=== PATIENT | female | born 1940 | race Caucasian/White ===

== ENCOUNTER 2020-05-08 11:10 | Emergency (ER) | payer MEDICARE, BC ==
[~2020-05-08] VITALS: Ht 162.6 cm; Wt 60.5 kg
[2020-05-08] MEDS ORDERED: LISI-662 PO (11:17)
[2020-05-08] MEDS ORDERED: ONDANSETRON HCL 4 MG/2 ML VIAL IVP ONE ×2 (11:30→14:30)
[2020-05-08] MEDS ORDERED: SODIUM CHLORIDE 0.9% 1,000 ML IV ONE ×2 (11:30→14:00)
[2020-05-08 12:03] LABS: BASOPHILS % (AUTO) 0.1 % (0.0-2.0); EOSINOPHILS % (AUTO) 0.2 % (1.0-6.0); HEMATOCRIT 43.4 % (36-46); HEMOGLOBIN 14.3 g/dL (12.0-16.0); LYMPHOCYTES # (AUTO) 1.1 K/uL (1.0-4.8); LYMPHOCYTES % (AUTO) 10.8 % (22.0-44.0); MEAN CORPUSCULAR VOLUME 88 fL (80-100); MONOCYTES # (AUTO) 0.7 K/uL (0.1-1.0); MONOCYTES % (AUTO) 6.7 % (2.0-9.0); NEUTROPHILS # (AUTO) 8.4 K/uL (1.8-7.7); NEUTROPHILS % (AUTO) 82.2 % (40.0-70.0); PLATELET COUNT (AUTO) 348 K/uL (150-450); RED BLOOD CELL COUNT(AUTO) 4.94 MIL/uL (4.00-5.20); RED CELL DISTRIBUTION WIDTH 12.9 % (11.5-14.5)
[2020-05-08 12:34] LABS: CALCIUM, TOTAL 9.1 mg/dL (8.8-10.5); CREATININE 0.96 mg/dL (0.60-1.30); POTASSIUM 3.3 mmol/L (3.5-5.1)
[2020-05-08 12:40] LABS: ALBUMIN 4.3 g/dL (3.4-5.0); BILIRUBIN,TOTAL 1.2 mg/dL (0.1-1.0); MAGNESIUM 2.2 mg/dL (1.80-2.40); TOTAL PROTEIN, SERUM 8.7 g/dL (6.4-8.2)
[2020-05-08] MEDS ORDERED: LISINOPRIL 10 MG TABLET PO ONE (12:45)
[2020-05-08] MEDS ORDERED: SODIUM CHLORIDE 0.9% 100 ML ONE (13:56)
[2020-05-08] MEDS ORDERED: IOVERSOL 320 MG/ML 100 ML VIAL ONE (13:56)
[2020-05-08] MEDS ORDERED: POTASSIUM CHLORIDE 20 MEQ ER TABLET PO ONE (14:00)
[2020-05-08] MEDS ORDERED: KETOROLAC TROMETHAMINE 30 MG/ML VIAL IVP ONE (14:30)
[2020-05-08] MEDS ORDERED: POTASSIUM CHL 10 MEQ/WATER 50 ML IV ONE (15:00)
[2020-05-08] MEDS ORDERED: SODIUM CHLORIDE 0.9% 500 ML IV ONE (15:22)
[2020-05-08 16:00] LABS: APPEARANCE,URINE CLEAR (CLEAR); BILIRUBIN,URINE NEGATIVE (NEGATIVE); GLUCOSE, URINE (UA) NEGATIVE (NEGATIVE); KETONES,URINE 40 mg/dL (NEGATIVE); LEUKOCYTE ESTERASE ,URINE NEGATIVE (NEGATIVE); NITRATE,URINE NEGATIVE (NEGATIVE); OCCULT BLOOD,URINE NEGATIVE (NEGATIVE); PROTEIN,URINE NEGATIVE (NEGATIVE)
[2020-05-08 16:11] VITALS: BP 167/77
[2020-05-08] MEDS ORDERED: BISMUTH SUBSALICYLATE 524 MG/30 ML SUSPENSION UDCUP PO ONE (16:30)
[2020-05-08 16:45] LABS: RBC,URINE None Seen /HPF (0-2)
[2020-05-08 16:46] LABS: BACTERIA,URINE Rare /HPF (None Seen)
[2020-05-08 16:48] LABS: SQUAMOUS EPITHELIAL CELL,UR Few /LPF (None Seen)
[2020-05-09] MEDS ORDERED: BISM262O28 PO (10:11)
[2020-05-09] MEDS ORDERED: ONDA-104 PO (10:11)
== END 2020-05-08 17:36 | disposition home or self-care (01) ==
LOC: EMS 11:19
DX: E87.6 Hypokalemia (principal); E86.0 Dehydration; K29.80 Duodenitis without bleeding; I10 Essential (primary) hypertension
CPT/HCPCS: 36415; 71045; 74177; 80053; 81001; 82550; 83605; 83735; 83880; 84484; 85025; 87040; 93005; 96361; 96365; 96375; 96376; 99285; J1885; J2405; J3480; J7030; J7040; J7050; Q9967

== ENCOUNTER 2020-05-09 10:06 | Inpatient (IN) | payer MEDICARE, BC ==
[~2020-05-09] VITALS: Ht 162.6 cm; Wt 59.5 kg
[~2020-05-09 10:06] MED LIST: LISI-662 PO
[2020-05-09] MEDS ORDERED: BISM262O28 PO (10:11)
[2020-05-09] MEDS ORDERED: ONDA-104 PO (10:11)
[2020-05-09] MEDS ORDERED: MORPHINE SULFATE 4 MG/ML SYRINGE IVP ONE (10:30)
[2020-05-09 11:28] LABS: BASOPHILS % (AUTO) 0.2 % (0.0-2.0); EOSINOPHILS % (AUTO) 0.1 % (1.0-6.0); HEMATOCRIT 39.8 % (36-46); HEMOGLOBIN 13.3 g/dL (12.0-16.0); LYMPHOCYTES # (AUTO) 1.1 K/uL (1.0-4.8); LYMPHOCYTES % (AUTO) 9.4 % (22.0-44.0); MEAN CORPUSCULAR HEMOGLOBIN 29.6 pg (26.0-34.0); MEAN CORPUSCULAR HGB CONC 33.3 G/dL (31.0-37.0); MEAN CORPUSCULAR VOLUME 89 fL (80-100); MONOCYTES # (AUTO) 0.8 K/uL (0.1-1.0); MONOCYTES % (AUTO) 6.7 % (2.0-9.0); NEUTROPHILS # (AUTO) 9.9 K/uL (1.8-7.7); NEUTROPHILS % (AUTO) 83.6 % (40.0-70.0); PLATELET COUNT (AUTO) 279 K/uL (150-450); RED BLOOD CELL COUNT(AUTO) 4.48 MIL/uL (4.00-5.20); RED CELL DISTRIBUTION WIDTH 12.4 % (11.5-14.5)
[2020-05-09 11:41] LABS: ANION GAP 15 mmol/L (8-16); CALCIUM, TOTAL 8.8 mg/dL (8.8-10.5); CARBON DIOXIDE 21 mmol/L (22-29); CHLORIDE 101 mmol/L (98-107); CREATININE 0.61 mg/dL (0.60-1.30); GLUCOSE,RANDOM 116 mg/dL (70-110); POTASSIUM 3.2 mmol/L (3.5-5.1); SODIUM SERUM 137 mmol/L (136-145); UREA NITROGEN, BLOOD 15 mg/dL (7-18)
[2020-05-09 11:42] LABS: GLOMERULAR FILTR. RATE CALC > 60 mL/min (>60)
[2020-05-09 11:47] LABS: ALANINE AMINOTRANSFERASE 33 U/L (12-78); ALBUMIN 3.7 g/dL (3.4-5.0); ALKALINE PHOSPHATASE 63 U/L (46-116); ASPARTATE AMINOTRANSFERASE 25 U/L (15-37); BILIRUBIN,TOTAL 1.1 mg/dL (0.1-1.0); LIPASE 172 U/L (73-393); TOTAL PROTEIN, SERUM 7.8 g/dL (6.4-8.2)
[2020-05-09 11:57] LABS: LACTIC ACID 1.5 mmol/L (0.4-2.0)
[2020-05-09 12:59] LABS: APPEARANCE,URINE CLOUDY (CLEAR); GLUCOSE, URINE (UA) NEGATIVE (NEGATIVE); KETONES,URINE >=80 mg/dL (NEGATIVE); LEUKOCYTE ESTERASE ,URINE LARGE (NEGATIVE); NITRATE,URINE NEGATIVE (NEGATIVE); OCCULT BLOOD,URINE NEGATIVE (NEGATIVE); PROTEIN,URINE POS 1+ (NEGATIVE)
[2020-05-09] MEDS ORDERED: CIPROFLOXACIN 400 MG/D5% WATER 200 ML IV ONE (13:00)
[2020-05-09] MEDS ORDERED: MetroNIDAZOLE 500 MG/NACL 100 ML IV ONE (13:00)
[2020-05-09 13:01] LABS: BILIRUBIN,URINE PRELIM. POSITIVE (NEGATIVE)
[2020-05-09 13:09] LABS: BACTERIA,URINE Moderate /HPF (None Seen); SQUAMOUS EPITHELIAL CELL,UR Moderate /LPF (None Seen); WBC,URINE 51-100 /HPF (0-5)
[2020-05-09] MEDS ORDERED: ONDANSETRON HCL 4 MG/2 ML VIAL IVP PRN ×2 (13:45→15:00)
[2020-05-09] MEDS ORDERED: 0.9% SODIUM CHLORIDE 10 ML SYRINGE IVP PRN (13:45)
[2020-05-09] MEDS ORDERED: ACETAMINOPHEN 325 MG TABLET PO PRN (13:45)
[2020-05-09] MEDS ORDERED: MORPHINE SULFATE 2 MG/ML SYRINGE IVP PRN (13:45)
[2020-05-09] MEDS ORDERED: IPRATROPIUM BROMIDE 0.5 MG/2.5 ML NEB SOLUTION NEB PRN (15:00)
[2020-05-09] MEDS ORDERED: MAGNESIUM HYDROXIDE SUSPENSION 30 ML UDCUP PO PRN (15:00)
[2020-05-09] MEDS ORDERED: DOCUSATE SODIUM 100 MG CAPSULE PO PRN (15:00)
[2020-05-09] MEDS ORDERED: ALBUTEROL SULFATE 2.5 MG/0.5 ML NEB SOLUTION NEB PRN (15:00)
[2020-05-09] MEDS ORDERED: BISACODYL 10 MG RECTAL RECTAL SUPPOSITORY PR PRN (15:00)
[2020-05-09] MEDS: SODIUM CHLORIDE 0.9% 1,000 ML IV SCH (15:42)
[2020-05-09] MEDS: PANTOPRAZOLE SODIUM 40 MG/VIAL IVP SCH (15:42)
[2020-05-09] MEDS: CefTRIAXone 1 GM/DEXTROSE 50 ML IV SCH (15:42)
[2020-05-09 16:12] VITALS: BP 174/80
[2020-05-09 19:58] VITALS: BP 191/95
[2020-05-09] MEDS: HEPARIN SODIUM,PORCINE 5,000 UNITS/ML VIAL SQ SCH (20:15)
[2020-05-09] MEDS: LACTOBACILLUS ACIDOPHILUS/BULGARICUS TABLET PO SCH (20:15)
[2020-05-09] MEDS: MORPHINE SULFATE 2 MG/ML SYRINGE IVP PRN (20:16)
[2020-05-09] MEDS: MetroNIDAZOLE 500 MG/NACL 100 ML IV SCH (20:25)
[2020-05-09 21:58] VITALS: BP 182/97
[2020-05-09] MEDS: ACETAMINOPHEN 325 MG TABLET PO PRN (22:21)
[2020-05-09] MEDS ORDERED: POTASSIUM CHLORIDE 10% 40 MEQ/30 ML LIQUID UDCUP PO PRN (23:15)
[2020-05-09] MEDS ORDERED: POTASSIUM CHLORIDE 20 MEQ ER TABLET PO PRN (23:15)
[2020-05-10] VITALS (8 sets, daily range): BP systolic 148–192; BP diastolic 71–91
[2020-05-10] MEDS: POTASSIUM CHLORIDE 20 MEQ ER TABLET PO PRN (00:04)
[2020-05-10] MEDS: POTASSIUM CHL 10 MEQ/WATER 50 ML IV PRN ×3 (00:19→03:46)
[2020-05-10] MEDS: MetroNIDAZOLE 500 MG/NACL 100 ML IV SCH ×3 (05:27→20:24)
[2020-05-10] MEDS: MORPHINE SULFATE 2 MG/ML SYRINGE IVP PRN ×2 (05:27→20:26)
[2020-05-10 08:02] LABS: BASOPHILS % (AUTO) 0.1 % (0.0-2.0); EOSINOPHILS % (AUTO) 0.9 % (1.0-6.0); HEMATOCRIT 38.4 % (36-46); LYMPHOCYTES # (AUTO) 1.3 K/uL (1.0-4.8); LYMPHOCYTES % (AUTO) 14.3 % (22.0-44.0); MEAN CORPUSCULAR HEMOGLOBIN 29.9 pg (26.0-34.0); MEAN CORPUSCULAR HGB CONC 33.9 G/dL (31.0-37.0); MEAN CORPUSCULAR VOLUME 88 fL (80-100); MONOCYTES # (AUTO) 0.7 K/uL (0.1-1.0); MONOCYTES % (AUTO) 7.2 % (2.0-9.0); NEUTROPHILS # (AUTO) 7.2 K/uL (1.8-7.7); NEUTROPHILS % (AUTO) 77.5 % (40.0-70.0); PLATELET COUNT (AUTO) 301 K/uL (150-450); RED BLOOD CELL COUNT(AUTO) 4.35 MIL/uL (4.00-5.20); RED CELL DISTRIBUTION WIDTH 12.6 % (11.5-14.5)
[2020-05-10 08:14] LABS: ALANINE AMINOTRANSFERASE 28 U/L (12-78); ALBUMIN 3.5 g/dL (3.4-5.0); ALKALINE PHOSPHATASE 61 U/L (46-116); ANION GAP 12 mmol/L (8-16); ASPARTATE AMINOTRANSFERASE 21 U/L (15-37); BILIRUBIN,TOTAL 0.9 mg/dL (0.1-1.0); CALCIUM, TOTAL 8.5 mg/dL (8.8-10.5); CARBON DIOXIDE 23 mmol/L (22-29); CHLORIDE 99 mmol/L (98-107); CREATININE 0.61 mg/dL (0.60-1.30); GLUCOSE,RANDOM 95 mg/dL (70-110); POTASSIUM 3.7 mmol/L (3.5-5.1); SODIUM SERUM 134 mmol/L (136-145); TOTAL PROTEIN, SERUM 8.1 g/dL (6.4-8.2); UREA NITROGEN, BLOOD 13 mg/dL (7-18)
[2020-05-10 08:15] LABS: GLOMERULAR FILTR. RATE CALC > 60 mL/min (>60)
[2020-05-10] MEDS: PANTOPRAZOLE SODIUM 40 MG/VIAL IVP SCH (08:26)
[2020-05-10] MEDS: HEPARIN SODIUM,PORCINE 5,000 UNITS/ML VIAL SQ SCH ×2 (08:26→20:25)
[2020-05-10] MEDS: SODIUM CHLORIDE 0.9% 1,000 ML IV SCH ×2 (08:26→19:57)
[2020-05-10] MEDS: LACTOBACILLUS ACIDOPHILUS/BULGARICUS TABLET PO SCH ×2 (08:39→20:24)
[2020-05-10] MEDS: ACETAMINOPHEN 325 MG TABLET PO PRN (10:02)
[2020-05-10] MEDS ORDERED: LISINOPRIL 20 MG TABLET PO ONE (12:15)
[2020-05-10] MEDS ORDERED: METOCLOPRAMIDE HCL 5 MG/ML 2 ML VIAL IVP PRN (12:30)
[2020-05-10] MEDS: CefTRIAXone 1 GM/DEXTROSE 50 ML IV SCH (15:27)
[2020-05-10] MEDS: HydrALAZINE HCL 20 MG/ML VIAL IVP PRN (18:24)
[2020-05-10] MEDS: PHENAZOPYRIDINE HCL 100 MG TABLET PO SCH (21:20)
[2020-05-10] MEDS ORDERED: MORPHINE SULFATE 2 MG/ML SYRINGE IVP ONE (23:00)
[2020-05-11] MEDS: HydrALAZINE HCL 20 MG/ML VIAL IVP PRN ×2 (00:25→11:13)
[2020-05-11] MEDS: MetroNIDAZOLE 500 MG/NACL 100 ML IV SCH ×3 (04:29→20:48)
[2020-05-11] MEDS: MORPHINE SULFATE 2 MG/ML SYRINGE IVP PRN ×3 (04:29→20:28)
[2020-05-11 04:36] VITALS: BP 145/84
[2020-05-11 07:26] VITALS: BP_SYST 128; BP_SYST 166; BP_DIAS 58; BP_DIAS 86
[2020-05-11] MEDS: LACTOBACILLUS ACIDOPHILUS/BULGARICUS TABLET PO SCH ×2 (07:57→20:25)
[2020-05-11] MEDS: HEPARIN SODIUM,PORCINE 5,000 UNITS/ML VIAL SQ SCH ×2 (07:57→20:25)
[2020-05-11] MEDS: PANTOPRAZOLE SODIUM 40 MG/VIAL IVP SCH (07:58)
[2020-05-11] MEDS: LISINOPRIL 20 MG TABLET PO SCH (07:58)
[2020-05-11] MEDS: PHENAZOPYRIDINE HCL 100 MG TABLET PO SCH ×2 (07:58→20:25)
[2020-05-11] MEDS ORDERED: NIFEdipine 60 MG ER TABLET PO ONE (10:00)
[2020-05-11 11:16] VITALS: BP 170/88
[2020-05-11] MEDS: HydrALAZINE HCL 25 MG TABLET PO SCH ×2 (13:23→20:25)
[2020-05-11] MEDS: CefTRIAXone 1 GM/DEXTROSE 50 ML IV SCH (15:23)
[2020-05-11 15:41] VITALS: BP 132/74
[2020-05-11 20:01] VITALS: BP 148/88
[2020-05-11] MEDS: SODIUM CHLORIDE 0.9% 1,000 ML IV SCH (20:25)
[2020-05-11] MEDS: ACETAMINOPHEN 325 MG TABLET PO PRN (21:39)
[2020-05-11 23:13] VITALS: BP 166/82
[2020-05-12] MEDS: MetroNIDAZOLE 500 MG/NACL 100 ML IV SCH ×3 (05:15→21:53)
[2020-05-12 05:46] VITALS: BP 142/86
[2020-05-12] MEDS: HydrALAZINE HCL 25 MG TABLET PO SCH ×3 (06:04→21:55)
[2020-05-12 08:31] VITALS: BP 158/81
[2020-05-12] MEDS: ACETAMINOPHEN 325 MG TABLET PO PRN (08:51)
[2020-05-12] MEDS: PHENAZOPYRIDINE HCL 100 MG TABLET PO SCH ×2 (08:51→21:55)
[2020-05-12] MEDS: LACTOBACILLUS ACIDOPHILUS/BULGARICUS TABLET PO SCH ×2 (08:51→21:55)
[2020-05-12] MEDS: PANTOPRAZOLE SODIUM 40 MG/VIAL IVP SCH (08:51)
[2020-05-12] MEDS: LISINOPRIL 20 MG TABLET PO SCH (08:51)
[2020-05-12] MEDS: HEPARIN SODIUM,PORCINE 5,000 UNITS/ML VIAL SQ SCH ×2 (08:52→21:55)
[2020-05-12 11:14] VITALS: BP 145/79
[2020-05-12 12:59] LABS: BASOPHILS % (AUTO) 0.1 % (0.0-2.0); EOSINOPHILS % (AUTO) 0 % (1.0-6.0); HEMATOCRIT 37.2 % (36-46); HEMOGLOBIN 12.5 g/dL (12.0-16.0); LYMPHOCYTES # (AUTO) 0.8 K/uL (1.0-4.8); LYMPHOCYTES % (AUTO) 7.1 % (22.0-44.0); MEAN CORPUSCULAR HEMOGLOBIN 29.3 pg (26.0-34.0); MEAN CORPUSCULAR HGB CONC 33.6 G/dL (31.0-37.0); MEAN CORPUSCULAR VOLUME 87 fL (80-100); MONOCYTES % (AUTO) 8.2 % (2.0-9.0); NEUTROPHILS % (AUTO) 84.6 % (40.0-70.0); PLATELET COUNT (AUTO) 315 K/uL (150-450); RED BLOOD CELL COUNT(AUTO) 4.25 MIL/uL (4.00-5.20); RED CELL DISTRIBUTION WIDTH 12.4 % (11.5-14.5)
[2020-05-12 13:23] LABS: ALANINE AMINOTRANSFERASE 22 U/L (12-78); ALKALINE PHOSPHATASE 50 U/L (46-116); ANION GAP 14 mmol/L (8-16); ASPARTATE AMINOTRANSFERASE 18 U/L (15-37); BILIRUBIN,TOTAL 0.6 mg/dL (0.1-1.0); CALCIUM, TOTAL 8.2 mg/dL (8.8-10.5); CARBON DIOXIDE 23 mmol/L (22-29); CHLORIDE 97 mmol/L (98-107); CREATININE 0.63 mg/dL (0.60-1.30); GLUCOSE,RANDOM 182 mg/dL (70-110); SODIUM SERUM 134 mmol/L (136-145); TOTAL PROTEIN, SERUM 7.1 g/dL (6.4-8.2); UREA NITROGEN, BLOOD 7 mg/dL (7-18)
[2020-05-12 13:54] LABS: GLOMERULAR FILTR. RATE CALC > 60 mL/min (>60)
[2020-05-12] MEDS ORDERED: POTASSIUM CHLORIDE 10% 40 MEQ/30 ML LIQUID UDCUP PO ONE (14:15)
[2020-05-12] MEDS: SODIUM CHLORIDE 0.9% 1,000 ML IV SCH (14:19)
[2020-05-12] MEDS: CefTRIAXone 1 GM/DEXTROSE 50 ML IV SCH (14:19)
[2020-05-12 14:27] VITALS: BP 142/70
[2020-05-12 15:31] VITALS: BP 126/68
[2020-05-12] MEDS: POTASSIUM CHL 10 MEQ/WATER 50 ML IV SCH ×4 (16:04→19:06)
[2020-05-12] MEDS ORDERED: MAGNESIUM SULFATE 4 GM/WATER 100 ML IV PRN (16:45)
[2020-05-12] MEDS ORDERED: MAGNESIUM SULFATE 2 GM/WATER 50 ML IV PRN (16:45)
[2020-05-12] MEDS: MAGNESIUM OXIDE 400 MG TABLET PO PRN ×2 (17:27→22:15)
[2020-05-12 20:10] VITALS: BP 128/67
[2020-05-13] VITALS (7 sets, daily range): BP systolic 145–188; BP diastolic 74–90
[2020-05-13] MEDS: ACETAMINOPHEN 325 MG TABLET PO PRN (00:15)
[2020-05-13] MEDS: POTASSIUM CHLORIDE 20 MEQ ER TABLET PO PRN (00:57)
[2020-05-13] MEDS: MAGNESIUM OXIDE 400 MG TABLET PO PRN (03:46)
[2020-05-13] MEDS: HydrALAZINE HCL 25 MG TABLET PO SCH ×3 (05:19→21:15)
[2020-05-13] MEDS: MetroNIDAZOLE 500 MG/NACL 100 ML IV SCH ×3 (05:19→20:30)
[2020-05-13] MEDS: SODIUM CHLORIDE 0.9% 1,000 ML IV SCH (05:19)
[2020-05-13 07:17] LABS: MAGNESIUM 1.8 mg/dL (1.80-2.40)
[2020-05-13 07:21] LABS: POTASSIUM 2.9 mmol/L (3.5-5.1)
[2020-05-13] MEDS: POTASSIUM CHL 10 MEQ/WATER 50 ML IV PRN ×7 (07:55→19:28)
[2020-05-13] MEDS: LACTOBACILLUS ACIDOPHILUS/BULGARICUS TABLET PO SCH ×2 (09:00→21:00)
[2020-05-13] MEDS: PHENAZOPYRIDINE HCL 100 MG TABLET PO SCH ×2 (09:00→21:00)
[2020-05-13] MEDS: HEPARIN SODIUM,PORCINE 5,000 UNITS/ML VIAL SQ SCH ×2 (09:00→21:27)
[2020-05-13] MEDS ORDERED: LORazepam 2 MG/ML VIAL IVP ONE ×2 (09:30→17:00)
[2020-05-13] MEDS: PANTOPRAZOLE SODIUM 40 MG/VIAL IVP SCH (10:39)
[2020-05-13] MEDS: LISINOPRIL 20 MG TABLET PO SCH (11:22)
[2020-05-13] MEDS: HydrALAZINE HCL 20 MG/ML VIAL IVP PRN (13:21)
[2020-05-13] MEDS: NiCARDipine HCL 25 MG in DEXTROSE 5%-WATER 240 ML IV PRN ×2 (13:31→22:38)
[2020-05-13] MEDS: CefTRIAXone 1 GM/DEXTROSE 50 ML IV SCH (15:46)
[2020-05-13 16:08] LABS: POTASSIUM 3.4 mmol/L (3.5-5.1)
[2020-05-13] MEDS ORDERED: GADOBUTROL 1 MMOL/ML 10 ML VIAL IVP ONE (17:53)
[2020-05-13] MEDS ORDERED: ASPIRIN 600 MG RECTAL SUPPOSITORY PR ONE (20:00)
[2020-05-13] MEDS: ASPIRIN 325 MG TABLET PO SCH (20:00)
[2020-05-13 20:38] LABS: CHOL/HDL RATIO 3.3 (3.9-5.7); THYROID STIMULATING HORMONE 0.82 uIU/mL (0.36-3.74)
[2020-05-13 20:40] LABS: HEMOGLOBIN A1C 5.7 % (3.8-5.6)
[2020-05-13] MEDS ORDERED: SODIUM CHLORIDE 0.9% 100 ML ONE (21:18)
[2020-05-13] MEDS ORDERED: IOVERSOL 350 MG/ML 100 ML VIAL ONE (21:19)
[2020-05-14] VITALS: BP 143/69
[2020-05-14] MEDS: NiCARDipine HCL 25 MG in DEXTROSE 5%-WATER 240 ML IV PRN ×3 (01:56→15:32)
[2020-05-14] MEDS: SODIUM CHLORIDE 0.9% 1,000 ML IV SCH ×3 (02:47→22:55)
[2020-05-14 04:00] VITALS: BP 133/65
[2020-05-14] MEDS: MetroNIDAZOLE 500 MG/NACL 100 ML IV SCH ×3 (04:32→20:56)
[2020-05-14] MEDS: HydrALAZINE HCL 25 MG TABLET PO SCH ×3 (05:15→20:57)
[2020-05-14 06:40] LABS: BASOPHILS % (AUTO) 0.1 % (0.0-2.0); EOSINOPHILS % (AUTO) 0 % (1.0-6.0); HEMATOCRIT 37.6 % (36-46); HEMOGLOBIN 12.4 g/dL (12.0-16.0); LYMPHOCYTES # (AUTO) 0.5 K/uL (1.0-4.8); LYMPHOCYTES % (AUTO) 2.9 % (22.0-44.0); MEAN CORPUSCULAR HEMOGLOBIN 29.1 pg (26.0-34.0); MEAN CORPUSCULAR HGB CONC 32.9 G/dL (31.0-37.0); MEAN CORPUSCULAR VOLUME 88 fL (80-100); MONOCYTES # (AUTO) 1.5 K/uL (0.1-1.0); MONOCYTES % (AUTO) 9.4 % (2.0-9.0); NEUTROPHILS # (AUTO) 14.2 K/uL (1.8-7.7); PLATELET COUNT (AUTO) 366 K/uL (150-450); RED BLOOD CELL COUNT(AUTO) 4.26 MIL/uL (4.00-5.20); RED CELL DISTRIBUTION WIDTH 13.1 % (11.5-14.5)
[2020-05-14 07:13] LABS: CALCIUM, TOTAL 8.4 mg/dL (8.8-10.5); CREATININE 1.29 mg/dL (0.60-1.30); MAGNESIUM 1.8 mg/dL (1.80-2.40); POTASSIUM 3.4 mmol/L (3.5-5.1)
[2020-05-14 07:14] LABS: NEUTROPHILS % (AUTO) 87.6 % (40.0-70.0)
[2020-05-14 08:00] VITALS: BP 145/70
[2020-05-14] MEDS: POTASSIUM CHL 10 MEQ/WATER 50 ML IV PRN ×3 (08:29→10:53)
[2020-05-14] MEDS: PANTOPRAZOLE SODIUM 40 MG/VIAL IVP SCH (08:29)
[2020-05-14] MEDS: HEPARIN SODIUM,PORCINE 5,000 UNITS/ML VIAL SQ SCH ×3 (08:30→20:57)
[2020-05-14] MEDS: PHENAZOPYRIDINE HCL 100 MG TABLET PO SCH ×2 (09:00→20:56)
[2020-05-14] MEDS: LACTOBACILLUS ACIDOPHILUS/BULGARICUS TABLET PO SCH ×2 (10:10→20:56)
[2020-05-14] MEDS: ACETAMINOPHEN 325 MG TABLET PO PRN (10:10)
[2020-05-14] MEDS: ASPIRIN 325 MG TABLET PO SCH (10:10)
[2020-05-14] MEDS: LISINOPRIL 20 MG TABLET PO SCH (10:10)
[2020-05-14 12:00] VITALS: BP 129/61
[2020-05-14] MEDS: ATORVASTATIN CALCIUM 10 MG TABLET PO SCH (13:57)
[2020-05-14] MEDS: POTASSIUM CHLORIDE 10% 40 MEQ/30 ML LIQUID UDCUP PO PRN (14:16)
[2020-05-14] MEDS: CefTRIAXone 1 GM/DEXTROSE 50 ML IV SCH (14:56)
[2020-05-14 16:00] VITALS: BP 134/67
[2020-05-14 20:00] VITALS: BP 145/66
[2020-05-15] VITALS (9 sets, daily range): BP systolic 137–158; BP diastolic 67–90
[2020-05-15] MEDS: ACETAMINOPHEN 325 MG TABLET PO PRN ×3 (02:00→18:34)
[2020-05-15] MEDS: MetroNIDAZOLE 500 MG/NACL 100 ML IV SCH ×3 (05:06→23:01)
[2020-05-15] MEDS: NiCARDipine HCL 25 MG in DEXTROSE 5%-WATER 240 ML IV PRN (05:07)
[2020-05-15] MEDS: HydrALAZINE HCL 25 MG TABLET PO SCH ×3 (05:09→23:00)
[2020-05-15 06:54] LABS: BASOPHILS % (AUTO) 0.2 % (0.0-2.0); EOSINOPHILS % (AUTO) 0.3 % (1.0-6.0); HEMATOCRIT 38.6 % (36-46); LYMPHOCYTES # (AUTO) 1.3 K/uL (1.0-4.8); LYMPHOCYTES % (AUTO) 9.7 % (22.0-44.0); MEAN CORPUSCULAR HGB CONC 33.7 G/dL (31.0-37.0); MEAN CORPUSCULAR VOLUME 89 fL (80-100); MONOCYTES # (AUTO) 0.9 K/uL (0.1-1.0); MONOCYTES % (AUTO) 6.7 % (2.0-9.0); NEUTROPHILS % (AUTO) 83.1 % (40.0-70.0); PLATELET COUNT (AUTO) 372 K/uL (150-450); RED BLOOD CELL COUNT(AUTO) 4.34 MIL/uL (4.00-5.20); RED CELL DISTRIBUTION WIDTH 13.1 % (11.5-14.5)
[2020-05-15 07:11] LABS: ALANINE AMINOTRANSFERASE 62 U/L (12-78); ALBUMIN 2.8 g/dL (3.4-5.0); ALKALINE PHOSPHATASE 64 U/L (46-116); ANION GAP 10 mmol/L (8-16); ASPARTATE AMINOTRANSFERASE 88 U/L (15-37); BILIRUBIN,TOTAL 0.4 mg/dL (0.1-1.0); CALCIUM, TOTAL 8.4 mg/dL (8.8-10.5); CARBON DIOXIDE 26 mmol/L (22-29); CHLORIDE 101 mmol/L (98-107); CREATININE 0.51 mg/dL (0.60-1.30); GLUCOSE,RANDOM 125 mg/dL (70-110); POTASSIUM 3.2 mmol/L (3.5-5.1); SODIUM SERUM 137 mmol/L (136-145); TOTAL PROTEIN, SERUM 7.3 g/dL (6.4-8.2); UREA NITROGEN, BLOOD 8 mg/dL (7-18)
[2020-05-15 07:14] LABS: GLOMERULAR FILTR. RATE CALC > 60 mL/min (>60)
[2020-05-15] MEDS: METOPROLOL TARTRATE 25 MG TABLET PO SCH ×3 (09:22→22:59)
[2020-05-15] MEDS: LISINOPRIL 20 MG TABLET PO SCH (09:22)
[2020-05-15] MEDS: ASPIRIN 325 MG TABLET PO SCH (09:22)
[2020-05-15] MEDS: ATORVASTATIN CALCIUM 10 MG TABLET PO SCH (09:23)
[2020-05-15] MEDS: LACTOBACILLUS ACIDOPHILUS/BULGARICUS TABLET PO SCH ×2 (09:23→22:59)
[2020-05-15] MEDS: PANTOPRAZOLE SODIUM 40 MG/VIAL IVP SCH (09:23)
[2020-05-15] MEDS: HEPARIN SODIUM,PORCINE 5,000 UNITS/ML VIAL SQ SCH ×2 (09:23→23:00)
[2020-05-15] MEDS: PHENAZOPYRIDINE HCL 100 MG TABLET PO SCH ×2 (09:23→23:00)
[2020-05-15] MEDS: POTASSIUM CHLORIDE 10% 40 MEQ/30 ML LIQUID UDCUP PO PRN (09:24)
[2020-05-15] MEDS: SODIUM CHLORIDE 0.9% 1,000 ML IV SCH (16:40)
[2020-05-15] MEDS: CefTRIAXone 1 GM/DEXTROSE 50 ML IV SCH (16:40)
[2020-05-16 04:10] VITALS: BP 158/89
[2020-05-16] MEDS: HydrALAZINE HCL 25 MG TABLET PO SCH ×2 (05:04→12:44)
[2020-05-16] MEDS: SODIUM CHLORIDE 0.9% 1,000 ML IV SCH (05:04)
[2020-05-16] MEDS: MetroNIDAZOLE 500 MG/NACL 100 ML IV SCH ×2 (05:04→12:43)
[2020-05-16 06:37] LABS: BASOPHILS % (AUTO) 0.1 % (0.0-2.0); EOSINOPHILS % (AUTO) 0.6 % (1.0-6.0); HEMATOCRIT 38.3 % (36-46); HEMOGLOBIN 12.8 g/dL (12.0-16.0); LYMPHOCYTES # (AUTO) 0.6 K/uL (1.0-4.8); LYMPHOCYTES % (AUTO) 4.6 % (22.0-44.0); MEAN CORPUSCULAR HEMOGLOBIN 29.7 pg (26.0-34.0); MEAN CORPUSCULAR HGB CONC 33.5 G/dL (31.0-37.0); MEAN CORPUSCULAR VOLUME 89 fL (80-100); MONOCYTES # (AUTO) 0.7 K/uL (0.1-1.0); MONOCYTES % (AUTO) 5.3 % (2.0-9.0); NEUTROPHILS # (AUTO) 12.3 K/uL (1.8-7.7); PLATELET COUNT (AUTO) 435 K/uL (150-450); RED BLOOD CELL COUNT(AUTO) 4.32 MIL/uL (4.00-5.20); RED CELL DISTRIBUTION WIDTH 13.1 % (11.5-14.5)
[2020-05-16 06:48] LABS: NEUTROPHILS % (AUTO) 89.4 % (40.0-70.0)
[2020-05-16 06:51] LABS: ALANINE AMINOTRANSFERASE 78 U/L (12-78); ALBUMIN 2.9 g/dL (3.4-5.0); ALKALINE PHOSPHATASE 76 U/L (46-116); ANION GAP 12 mmol/L (8-16); ASPARTATE AMINOTRANSFERASE 73 U/L (15-37); BILIRUBIN,TOTAL 0.5 mg/dL (0.1-1.0); CALCIUM, TOTAL 8.5 mg/dL (8.8-10.5); CARBON DIOXIDE 24 mmol/L (22-29); CHLORIDE 95 mmol/L (98-107); CREATININE 0.54 mg/dL (0.60-1.30); GLUCOSE,RANDOM 115 mg/dL (70-110); POTASSIUM 3.1 mmol/L (3.5-5.1); SODIUM SERUM 131 mmol/L (136-145); TOTAL PROTEIN, SERUM 7.5 g/dL (6.4-8.2); UREA NITROGEN, BLOOD 9 mg/dL (7-18)
[2020-05-16 06:52] LABS: GLOMERULAR FILTR. RATE CALC > 60 mL/min (>60)
[2020-05-16 07:47] VITALS: BP 160/96
[2020-05-16] MEDS: HydrALAZINE HCL 20 MG/ML VIAL IVP PRN ×2 (08:47→16:01)
[2020-05-16] MEDS: PHENAZOPYRIDINE HCL 100 MG TABLET PO SCH (08:47)
[2020-05-16] MEDS: LACTOBACILLUS ACIDOPHILUS/BULGARICUS TABLET PO SCH (08:47)
[2020-05-16] MEDS: ACETAMINOPHEN 325 MG TABLET PO PRN (08:47)
[2020-05-16] MEDS: ASPIRIN 325 MG TABLET PO SCH (08:48)
[2020-05-16] MEDS: POTASSIUM CHLORIDE 20 MEQ ER TABLET PO PRN ×2 (08:48→16:02)
[2020-05-16] MEDS: PANTOPRAZOLE SODIUM 40 MG/VIAL IVP SCH (08:48)
[2020-05-16] MEDS: LISINOPRIL 20 MG TABLET PO SCH (08:48)
[2020-05-16] MEDS: ATORVASTATIN CALCIUM 10 MG TABLET PO SCH (08:48)
[2020-05-16] MEDS: HEPARIN SODIUM,PORCINE 5,000 UNITS/ML VIAL SQ SCH (08:48)
[2020-05-16] MEDS: METOPROLOL TARTRATE 25 MG TABLET PO SCH ×2 (08:49→16:01)
[2020-05-16 10:17] VITALS: BP 133/71
[2020-05-16 10:50] LABS: FREE T4 (FREE THYROXINE) 1.85 ng/dL (0.76-1.46); THYROID STIMULATING HORMONE 0.74 uIU/mL (0.36-3.74)
[2020-05-16 15:08] VITALS: BP 174/82
[2020-05-16] MEDS: CefTRIAXone 1 GM/DEXTROSE 50 ML IV SCH (16:01)
== END 2020-05-17 07:01 | DRG 391 ==
LOC: EMS 10:07 → 4E 14:42 → 5S 16:19 → ICU 05-13 12:21 → 5S 05-15 19:35
PROVIDERS: ADMIT Internal Medicine; ATTEND Internal Medicine
DX: K29.80 Duodenitis without bleeding (principal); I63.40 Cerebral infarction due to embolism of unspecified cerebral artery; N39.0 Urinary tract infection, site not specified; R65.10 Systemic inflammatory response syndrome (SIRS) of non-infectious origin without acute organ dysfunction; I10 Essential (primary) hypertension; E87.6 Hypokalemia; B96.89 Other specified bacterial agents as the cause of diseases classified elsewhere; Z03.818 Encounter for observation for suspected exposure to other biological agents ruled out
CPT/HCPCS: 70450; 70496; 70498; 70553; 74018; 74177; 83036; 83605; 83735; 84132; 84145; 84439; 84443; 87040; 87081; 87086; 93005; 93306; A9585; C9113; G0378; J0360; J0696; J0744; J1644; J2060; J2270; J2405; J2765; J3480; J3490; J7030; J7050; J7060; 36415-L1; 36415-TC; 71045-TC; 80061-TC; 87635; U0003-CS